=== PATIENT | male | born 2000 | race Caucasian/White ===

== ENCOUNTER → 2019-05-11 | Outpatient (CLI) | payer OTHER ==
--- NOTE | 2019-05-11 14:41 | XR ---
EXAMINATION TYPE: XR shoulder complete RT DATE OF EXAM: 05/11/2019 COMPARISON: NONE HISTORY: Pain TECHNIQUE: Shoulder examined in 3 FINDINGS: The humeral head articulates with the glenoid. The acromio-clavicular junction is normal. No acute fractures or dislocations are evident. A follow up study can be performed 7-10 days from acute trauma for continued pain. IMPRESSION: 1. Normal Shoulder
== END | disposition home or self-care (01) ==
LOC: RADXRMAIN 14:21
PROVIDERS: ATTEND Emergency Medicine
DX: S46.011A Strain of muscle(s) and tendon(s) of the rotator cuff of right shoulder, initial encounter (principal)

== ENCOUNTER → 2019-05-30 | Outpatient (CLI) | payer OTHER ==
--- NOTE | 2019-05-31 07:01 | MR ---
EXAMINATION TYPE: MR shoulder RT wo con DATE OF EXAM: 05/30/2019 COMPARISON: Right shoulder x-ray May 11, 2019. HISTORY: Rt shoulder pain after strain injury. TECHNIQUE: Multiplanar, multisequence imaging of the right shoulder is performed without contrast. FINDINGS: Rotator Cuff: Distal supraspinatus and infraspinatus tendons are intact. Some increased signal distal infraspinatus tendon and the articular surface. Subscapularis tendon is in intact with some thickeni ng and intermediate signal. Acromioclavicular Joint: Mild narrowing. No significant spurring. Underlying fat plane maintained. Di stal acromion morphology unremarkable. Glenohumeral Joint: Mild narrowing. Small effusion. No significant spurring. Labrum: The labrum appears grossly intact given limitation of non-arthrogram study. Biceps Tendon: The long head of biceps is in normal location within bicipital groove. Bone marrow signal: No focal abnormal marrow signal is appreciated. Other: No additional significant abnormality is appreciated. IMPRESSION: No rotator cuff or labral tear identified. Some tendinopathy of the infraspinatus tendon at the articular surface and distal subscapularis tendon.
== END | disposition home or self-care (01) ==
LOC: RADMRIMAIN 18:59
PROVIDERS: ATTEND Emergency Medicine
DX: M67.89 Other specified disorders of synovium and tendon, multiple sites (principal)